=== PATIENT | male | born 1970 | race African-American/Black ===

== ENCOUNTER 2018-09-10 13:53 | Emergency (ER) | payer OTHER ==
[~2018-09-10] VITALS: Ht 175.3 cm; Wt 107.5 kg
[2018-09-10] MEDS ORDERED: NAPROSYN500 M1 PO (14:32)
[2018-09-10] MEDS ORDERED: PAMELOR50 MG PO (14:33)
[2018-09-10] MEDS ORDERED: VIBRAMYCIN 100100 M2 PO (15:04)
[2018-09-10 15:45] VITALS: BP 105/68
== END 2018-09-10 15:50 | disposition home or self-care (01) ==
LOC: ER 13:53
DX: S60.561A Insect bite (nonvenomous) of right hand, initial encounter (principal); L03.113 Cellulitis of right upper limb; M17.12 Unilateral primary osteoarthritis, left knee; F17.210 Nicotine dependence, cigarettes, uncomplicated; W57.XXXA Bitten or stung by nonvenomous insect and other nonvenomous arthropods, initial encounter; Y93.89 Activity, other specified; Y92.89 Other specified places as the place of occurrence of the external cause; Y99.8 Other external cause status

== ENCOUNTER 2020-05-29 06:26 | Emergency (ER) | payer OTHER ==
[~2020-05-29] VITALS: Ht 175.3 cm; Wt 92.5 kg
[~2020-05-29 06:26] MED LIST: NAPROSYN500 M1 PO; PAMELOR50 MG PO; VIBRAMYCIN 100100 M2 PO
[2020-05-29 06:28] VITALS: BP 129/90
[2020-05-29] MEDS ORDERED: TRAZODONE HCL50 MG PO (06:28)
== END 2020-05-29 07:23 | disposition home or self-care (01) ==
LOC: ER 06:26
DX: S46.912A Strain of unspecified muscle, fascia and tendon at shoulder and upper arm level, left arm, initial encounter (principal); M54.5 Low back pain; M17.12 Unilateral primary osteoarthritis, left knee; F17.210 Nicotine dependence, cigarettes, uncomplicated; Z79.899 Other long term (current) drug therapy; V89.2XXA Person injured in unspecified motor-vehicle accident, traffic, initial encounter; Y93.89 Activity, other specified; Y92.488 Other paved roadways as the place of occurrence of the external cause; Y99.8 Other external cause status

== ENCOUNTER 2020-06-13 21:58 | Emergency (ER) | payer OTHER ==
[~2020-06-13] VITALS: Ht 175.3 cm; Wt 93.0 kg
[~2020-06-13 21:58] MED LIST changes: +TRAZODONE HCL50 MG PO
[2020-06-13] MEDS ORDERED: NAPROSYN500 M1 PO (22:06)
[2020-06-13 23:59] VITALS: BP 106/82
== END 2020-06-14 | disposition home or self-care (01) ==
LOC: ER 21:58
DX: M54.5 Low back pain (principal); F17.210 Nicotine dependence, cigarettes, uncomplicated; Z79.899 Other long term (current) drug therapy

== ENCOUNTER 2020-11-27 08:26 | Emergency (ER) | payer OTHER ==
[~2020-11-27] VITALS: Ht 175.3 cm; Wt 93.0 kg
[2020-11-27 08:43] VITALS: BP 138/93
[2020-11-27] MEDS ORDERED: IBUPROFEN 600600 M1 PO (11:27)
[2020-11-27] MEDS ORDERED: HYDROCODON-ACE1 EAC7 PO (11:27)
== END 2020-11-27 11:38 | disposition home or self-care (01) ==
LOC: ER 08:26
DX: S63.592A Other specified sprain of left wrist, initial encounter (principal); S43.491A Other sprain of right shoulder joint, initial encounter; S20.212A Contusion of left front wall of thorax, initial encounter; F17.210 Nicotine dependence, cigarettes, uncomplicated; M13.862 Other specified arthritis, left knee; V00.121A Fall from non-in-line roller-skates, initial encounter; Y93.51 Activity, roller skating (inline) and skateboarding; Y92.89 Other specified places as the place of occurrence of the external cause; Y99.9 Unspecified external cause status